=== PATIENT | female | born 1970 | race African-American/Black ===

== ENCOUNTER 2023-06-05 23:38 | Inpatient (IN) | payer SELFPAY ==
[~2023-06-05] VITALS: Ht 170.2 cm; Wt 76.7 kg
[2023-06-06 00:25] LABS: BASOPHILS % 1.1 % (0.0-2.0); EOSINOPHILS % 11.1 % (0.0-5.0); HEMATOCRIT. 40.2 % (36.0-48.0); HEMOGLOBIN. 13.5 g/dL (12.0-16.0); LYMPHOCYTES % 41.1 % (20.0-50.0); MEAN CORPUSCULAR HEMOGLOBIN 29.3 pg (28.0-32.0); MEAN CORPUSCULAR HGB CONC 33.7 g/dL (31.0-37.0); MEAN PLATELET VOLUME 9.5 fl (7.4-10.4); MONOCYTES % 7.2 % (2.0-8.0); NEUTROPHILS % 39.5 % (40.0-76.0); PLATELET 212 x1000/uL (130-400); RED BLOOD CELL COUNT 4.62 mill/uL (4.2-5.4); RED CELL DISTRIBUTION WIDTH 12.8 % (11.6-14.6)
[2023-06-06 01:22] LABS: ALANINE AMINOTRANSFERASE 20 IU/L (10-49); ALBUMIN 4.4 g/dL (3.2-4.8); ASPARTATE AMINOTRANSFERASE 21 IU/L (<34); BILIRUBIN TOTAL 1.1 mg/dL (0.1-1.0); CALCIUM 10.3 mg/dL (8.7-10.4); CARBON DIOXIDE 26 mEq/L (21-32); CHLORIDE 102 mEq/L (98-107); CREATININE 0.7 mg/dL (0.6-1.0); GLUCOSE 275 mg/dL (70-105); POTASSIUM 3.8 mEq/L (3.5-5.1); PROTEIN TOTAL 7.9 g/dL (6.0-8.3); SODIUM 138 mEq/L (136-145); TROPONIN I HIGH SENSITIVITY 12 ng/L (3.0-34); UREA NITROGEN BLOOD 8 mg/dL (9-23)
[2023-06-06 01:41] LABS: ETHANOL BLOOD < 10 mg/dL (<10)
[2023-06-06] MEDS ORDERED: ASPIRIN 325MG EC TABLET PO ONE (04:30)
[2023-06-06] MEDS ORDERED: ASPIRIN 325MG EC TABLET PO SCH (07:15)
[2023-06-06] MEDS ORDERED: NA PHOS,M-B/NA PHOS,DI-BA ENEMA 118ML PR PRN (08:30)
[2023-06-06] MEDS ORDERED: NITROGLYCERIN 0.4MG TABLET SL SL PRN (08:30)
[2023-06-06] MEDS ORDERED: DEXTROSE 50% WATER 50ML SYRINGE IV PRN (08:30)
[2023-06-06] MEDS ORDERED: GUAIFENESIN 200MG/10ML SUGAR FREE UDC PO PRN (08:30)
[2023-06-06] MEDS ORDERED: ONDANSETRON HCL 4MG/2ML INJ IV PRN (08:30)
[2023-06-06] MEDS ORDERED: ACETAMINOPHEN 325MG TABLET PO PRN ×2 (08:30)
[2023-06-06] MEDS ORDERED: DOCUSATE SODIUM 100MG CAPSULE PO PRN (08:30)
[2023-06-06] MEDS ORDERED: MAGNESIUM/ALUMINUM HYDROXIDE/SIMETHICONE 30ML UDC PO PRN (08:30)
[2023-06-06] MEDS ORDERED: KETOROLAC 15MG/ML VIAL IV PRN (08:30)
[2023-06-06] MEDS ORDERED: IPRATROPIUM/ALBUTEROL 0.5-3(2.5)MG/3ML NEB NEB PRN (08:30)
[2023-06-06] MEDS ORDERED: CLONIDINE 0.1MG TABLET PO PRN (08:30)
[2023-06-06] MEDS: INSULIN LISPRO 100 UNITS/ML SUBCUT SCH ×4 (10:25→21:08)
[2023-06-06] MEDS: ENOXAPARIN 40MG/0.4ML SYR SUBCUT SCH (10:37)
[2023-06-06] MEDS: BLOOD SUGAR DIAGNOSTIC STRIP TEST SCH ×4 (10:37→21:09)
[2023-06-06] MEDS: FAMOTIDINE 20MG TABLET PO SCH ×2 (10:40→21:09)
[2023-06-06 11:26] VITALS: BP 155/87; PULSE 68; RESP 20; TEMP 97.8
[2023-06-06 12:00] VITALS: BP 155/89; PULSE 96; RESP 20; TEMP 98
[2023-06-06 16:00] VITALS: BP 158/92; PULSE 98; RESP 18; TEMP 96.9
[2023-06-06] MEDS ORDERED: INFLUENZA VACCINE 05/PF 0.5 ML SYRINGE IM ONE (16:00)
[2023-06-06 16:14] LABS: CREATINE KINASE 56 IU/L (34-145); CREATINE KINASE MB FRACTION < 0.5 ng/mL (0.5-3.6); TROPONIN I HIGH SENSITIVITY 8 ng/L (3.0-34)
[2023-06-06 20:00] VITALS: BP 151/80; PULSE 69; RESP 20; TEMP 97.2
[2023-06-06] MEDS ORDERED: ZOLPIDEM TARTRATE 5MG TABLET PO PRN (21:00)
[2023-06-06] MEDS: INSULIN GLARGINE 100 UNITS/ML SUBCUT SCH (21:09)
[2023-06-07] VITALS: BP 151/80; PULSE 69; RESP 20; TEMP 97.2
[2023-06-07 00:12] LABS: CREATINE KINASE 55 IU/L (34-145); CREATINE KINASE MB FRACTION < 0.5 ng/mL (0.5-3.6); TROPONIN I HIGH SENSITIVITY 8 ng/L (3.0-34)
[2023-06-07] MEDS: INSULIN LISPRO 100 UNITS/ML SUBCUT SCH ×5 (06:36→21:08)
[2023-06-07] MEDS: BLOOD SUGAR DIAGNOSTIC STRIP TEST SCH ×4 (06:36→21:11)
[2023-06-07 07:01] LABS: BASOPHILS % 1.1 % (0.0-2.0); EOSINOPHILS % 11.1 % (0.0-5.0); HEMOGLOBIN. 13.2 g/dL (12.0-16.0); LYMPHOCYTES % 40.6 % (20.0-50.0); MEAN CORPUSCULAR HEMOGLOBIN 29.5 pg (28.0-32.0); MEAN CORPUSCULAR HGB CONC 33.8 g/dL (31.0-37.0); MEAN CORPUSCULAR VOLUME 87.1 fL (81.0-99.0); MEAN PLATELET VOLUME 9.9 fl (7.4-10.4); MONOCYTES % 7.5 % (2.0-8.0); NEUTROPHILS % 39.7 % (40.0-76.0); PLATELET 197 x1000/uL (130-400); RED BLOOD CELL COUNT 4.48 mill/uL (4.2-5.4); RED CELL DISTRIBUTION WIDTH 12.8 % (11.6-14.6); WHITE BLOOD COUNT 5.9 x1000/uL (4.5-11.0)
[2023-06-07 07:48] LABS: ALANINE AMINOTRANSFERASE 16 IU/L (10-49); ASPARTATE AMINOTRANSFERASE 16 IU/L (<34); BILIRUBIN TOTAL 1.3 mg/dL (0.1-1.0); CALCIUM 9.8 mg/dL (8.7-10.4); CARBON DIOXIDE 27 mEq/L (21-32); CHLORIDE 104 mEq/L (98-107); CREATININE 0.7 mg/dL (0.6-1.0); GLUCOSE 206 mg/dL (70-105); PHOSPHORUS 4.3 mg/dL (2.5-4.9); POTASSIUM 3.8 mEq/L (3.5-5.1); PROTEIN TOTAL 7.1 g/dL (6.0-8.3); SODIUM 141 mEq/L (136-145); UREA NITROGEN BLOOD 12 mg/dL (9-23)
[2023-06-07 08:00] VITALS: BP 148/80; PULSE 71; RESP 18; TEMP 97.5
[2023-06-07] MEDS: CLOPIDOGREL 75MG TABLET PO SCH (08:15)
[2023-06-07] MEDS: ENOXAPARIN 40MG/0.4ML SYR SUBCUT SCH (08:16)
[2023-06-07] MEDS: FAMOTIDINE 20MG TABLET PO SCH ×2 (08:16→21:01)
[2023-06-07] MEDS: ASPIRIN 81MG EC TABLET PO SCH (08:16)
[2023-06-07 08:36] LABS: CHOLESTEROL 231 mg/dL (<200); HDL CHOLESTEROL 87 mg/dL (>65); IRON 78 ug/dL (50-170); LDL CHOLESTEROL 134 mg/dL (5-100); T4 FREE 1.43 ng/dL (0.89-1.76); THYROID STIMULATING HORMONE 4.59 uIU/mL (0.55-4.78); TOTAL IRON BINDING CAPACITY 351 ug/dl (250-425); TRIGLYCERIDE 142 mg/dL (0-150)
[2023-06-07] MEDS ORDERED: ASPIRIN 325MG EC TABLET PO SCH (09:00)
[2023-06-07 12:00] VITALS: BP 155/86; PULSE 72; RESP 20; TEMP 97.9
[2023-06-07 16:00] VITALS: BP 116/83; PULSE 69; RESP 18; TEMP 97.5
[2023-06-07 20:00] VITALS: BP 172/91; PULSE 78; RESP 20; TEMP 97.2
[2023-06-07] MEDS: ATORVASTATIN CALCIUM 40MG TABLET PO SCH (21:01)
[2023-06-07] MEDS: INSULIN GLARGINE 100 UNITS/ML SUBCUT SCH (21:11)
[2023-06-08] VITALS: BP 140/60; PULSE 58; RESP 20; TEMP 97.3
[2023-06-08 04:15] VITALS: BP 151/70; PULSE 64; RESP 20; TEMP 97.4
[2023-06-08] MEDS: BLOOD SUGAR DIAGNOSTIC STRIP TEST SCH ×4 (06:13→20:44)
[2023-06-08] MEDS: INSULIN LISPRO 100 UNITS/ML SUBCUT SCH ×4 (06:13→21:15)
[2023-06-08 08:00] VITALS: BP 142/68; PULSE 78; RESP 18; TEMP 98
[2023-06-08] MEDS: FAMOTIDINE 20MG TABLET PO SCH ×2 (08:27→20:14)
[2023-06-08] MEDS: CLOPIDOGREL 75MG TABLET PO SCH (08:27)
[2023-06-08] MEDS: ENOXAPARIN 40MG/0.4ML SYR SUBCUT SCH (08:27)
[2023-06-08] MEDS: ASPIRIN 81MG EC TABLET PO SCH (08:27)
[2023-06-08] MEDS: AMLODIPINE 10MG TABLET PO SCH (08:30)
[2023-06-08 09:02] LABS: BASOPHILS % 1.8 % (0.0-2.0); EOSINOPHILS % 14.9 % (0.0-5.0); HEMATOCRIT. 40.9 % (36.0-48.0); HEMOGLOBIN. 13.4 g/dL (12.0-16.0); LYMPHOCYTES % 38.3 % (20.0-50.0); MEAN CORPUSCULAR HEMOGLOBIN 28.8 pg (28.0-32.0); MEAN CORPUSCULAR HGB CONC 32.7 g/dL (31.0-37.0); MEAN CORPUSCULAR VOLUME 88.2 fL (81.0-99.0); MEAN PLATELET VOLUME 9.4 fl (7.4-10.4); MONOCYTES % 6.3 % (2.0-8.0); NEUTROPHILS % 38.7 % (40.0-76.0); PLATELET 218 x1000/uL (130-400); RED BLOOD CELL COUNT 4.64 mill/uL (4.2-5.4); RED CELL DISTRIBUTION WIDTH 12.7 % (11.6-14.6); WHITE BLOOD COUNT 6.7 x1000/uL (4.5-11.0)
[2023-06-08 09:09] LABS: CALCIUM 10.1 mg/dL (8.7-10.4); CARBON DIOXIDE 26 mEq/L (21-32); CHLORIDE 104 mEq/L (98-107); CREATININE 0.7 mg/dL (0.6-1.0); GLUCOSE 173 mg/dL (70-105); POTASSIUM 3.5 mEq/L (3.5-5.1); SODIUM 140 mEq/L (136-145); UREA NITROGEN BLOOD 10 mg/dL (9-23)
[2023-06-08 12:00] VITALS: BP 139/75; PULSE 62; RESP 20; TEMP 96.7
[2023-06-08 16:00] VITALS: BP_SYST 125; BP_SYST 150; BP_DIAS 63; BP_DIAS 87; PULSE 119; PULSE 83; RESP 20; TEMP 96.9
[2023-06-08 20:00] VITALS: BP 137/76; PULSE 84; RESP 18; TEMP 96.3
[2023-06-08] MEDS: ATORVASTATIN CALCIUM 40MG TABLET PO SCH (20:14)
[2023-06-08] MEDS: INSULIN GLARGINE 100 UNITS/ML SUBCUT SCH (21:15)
[2023-06-09] VITALS: BP 129/72; PULSE 76; RESP 19; TEMP 96.6
[2023-06-09 04:00] VITALS: BP 152/68; PULSE 60; RESP 19; TEMP 96.6
[2023-06-09] MEDS: BLOOD SUGAR DIAGNOSTIC STRIP TEST SCH ×4 (06:19→21:13)
[2023-06-09] MEDS: INSULIN LISPRO 100 UNITS/ML SUBCUT SCH ×4 (06:42→21:13)
[2023-06-09 08:00] VITALS: BP 132/72; PULSE 72; RESP 20; TEMP 96.6
[2023-06-09] MEDS: FAMOTIDINE 20MG TABLET PO SCH ×2 (08:56→21:10)
[2023-06-09] MEDS: CLOPIDOGREL 75MG TABLET PO SCH (08:56)
[2023-06-09] MEDS: AMLODIPINE 10MG TABLET PO SCH (08:56)
[2023-06-09] MEDS: ASPIRIN 81MG EC TABLET PO SCH (08:56)
[2023-06-09] MEDS: ENOXAPARIN 40MG/0.4ML SYR SUBCUT SCH (08:56)
[2023-06-09] MEDS ORDERED: ASPI-1406 PO (11:03)
[2023-06-09] MEDS ORDERED: LIP40 PO (11:03)
[2023-06-09] MEDS ORDERED: AMLO10TA80 PO (11:03)
[2023-06-09] MEDS ORDERED: LANTUSUD SUBCUT (11:03)
[2023-06-09] MEDS ORDERED: INSLIS SUBCUT (11:03)
[2023-06-09] MEDS ORDERED: CLOP-31 PO (11:03)
[2023-06-09] MEDS ORDERED: FAMO20TA8 PO (11:03)
[2023-06-09 12:00] VITALS: BP 159/83; PULSE 74; RESP 21; TEMP 97.7
[2023-06-09 16:00] VITALS: BP 166/85; PULSE 84; RESP 20; TEMP 97.9
[2023-06-09 20:00] VITALS: BP 132/77; PULSE 81; RESP 18; TEMP 97.7
[2023-06-09] MEDS: ATORVASTATIN CALCIUM 40MG TABLET PO SCH (21:10)
[2023-06-09] MEDS: INSULIN GLARGINE 100 UNITS/ML SUBCUT SCH (21:12)
[2023-06-10] VITALS: BP 120/69; PULSE 66; RESP 19; TEMP 97
[2023-06-10 04:00] VITALS: BP 123/67; PULSE 63; RESP 18; TEMP 97.9
[2023-06-10] MEDS: INSULIN LISPRO 100 UNITS/ML SUBCUT SCH ×2 (06:37→13:55)
[2023-06-10] MEDS: BLOOD SUGAR DIAGNOSTIC STRIP TEST SCH (06:37)
[2023-06-10 08:00] VITALS: BP 167/89; PULSE 72; RESP 17; TEMP 97.1
[2023-06-10] MEDS: ENOXAPARIN 40MG/0.4ML SYR SUBCUT SCH (08:53)
[2023-06-10] MEDS: FAMOTIDINE 20MG TABLET PO SCH (08:53)
[2023-06-10] MEDS: ASPIRIN 81MG EC TABLET PO SCH (08:53)
[2023-06-10] MEDS: CLOPIDOGREL 75MG TABLET PO SCH (08:54)
[2023-06-10] MEDS: AMLODIPINE 10MG TABLET PO SCH (08:57)
[2023-06-10 12:00] VITALS: BP 158/79; PULSE 63; RESP 16; TEMP 96.6
[2023-06-10 14:50] VITALS: BP 158/79; PULSE 63; TEMP 96.6; O2SAT 95
== END 2023-06-10 15:18 | disposition home or self-care (01) | DRG 45 ==
LOC: ER 23:38 → MICUSO 06-06 04:37 → EDBEDREQ 06-06 04:44 → 8WST 06-06 13:00
PROVIDERS: ADMIT Internal Medicine; ATTEND Internal Medicine
DX: I63.9 Cerebral infarction, unspecified (principal); E11.9 Type 2 diabetes mellitus without complications; E66.9 Obesity, unspecified; I16.0 Hypertensive urgency; R29.810 Facial weakness; Z68.26 Body mass index [BMI] 26.0-26.9, adult; E78.5 Hyperlipidemia, unspecified; R29.701 NIHSS score 1; Z79.4 Long term (current) use of insulin; Z82.49 Family history of ischemic heart disease and other diseases of the circulatory system; Z86.73 Personal history of transient ischemic attack (TIA), and cerebral infarction without residual deficits; Z91.119 Patient's noncompliance with dietary regimen due to unspecified reason; Z91.148 Patient's other noncompliance with medication regimen for other reason
CPT/HCPCS: 36415; 70551; 71045; 80048; 80053; 80061; 80320; 82550; 82553; 82607; 82746; 82962; 83036; 83540; 83550; 83735; 83880; 84100; 84439; 84443; 84484; 85025; 90686; 93005; 93306; 93970; 97161; 97166; 99285; J1650; J1815; G0480